=== PATIENT | male | born 1990 | race Caucasian/White ===

== ENCOUNTER 2018-02-27 15:16 | Emergency (ER) | payer SELFPAY ==
[2018-02-27] MEDS: LIDOCAINE 1% (MDV) 10 ML INJ INJ (17:03)
[2018-02-27] MEDS: DIPHTH/TET/ACEL PERTUSS (ADULT) 0.5 ML VIAL IM* (17:03)
== END 2018-02-27 18:40 | disposition home or self-care (01) ==
LOC: FTE 15:16
DX: S41.111A Laceration without foreign body of right upper arm, initial encounter (principal); W25.XXXA Contact with sharp glass, initial encounter; Y92.9 Unspecified place or not applicable; Z23 Encounter for immunization
CPT/HCPCS: 12002; 73060-RT; 90471; 90715; 99283-25